=== PATIENT | female | born 1990 | race Caucasian/White ===

== ENCOUNTER 2024-06-20 15:39 | Emergency (ER) | payer BC, SELFPAY ==
--- NOTE | ~2024-06-20 | US_ITS ---
EXAMINATION: US OB transvaginal DATE: 06/20/2024 19:43 [facility] INDICATION: Vaginal bleeding with a positive test COMPARISON: 05/07/2024 TECHNIQUE: Real-time transabdominal obstetric ultrasound. FINDINGS: LMP given as 05/05/2024 1 para 0 Estimated date of delivery by last menstrual period is 02/09/2025 Quantitative beta hCG is less than 1000 The uterus measures 7.7 x 3.3 x 4.3 cm. Endometrial complex measures 5.1 mm No gestational sac is identified at this early stage. The right ovary measures 4.2 x 1.7 x 2.0 cm. Within the right ovary is a well-circumscribed anechoic avascular focus measuring 18 x 16 x 16 mm, po ssibly an early corpus luteal cyst. The left ovary measures 3.0 x 1.5 x 1.8 cm. IMPRESSION: No intrauterine gestation is identified at this early stage. Short-term follow-up is recommended. Reviewed, dictated and finalized at location A. STRIPPER
[2024-06-20 15:48] VITALS: BP 132/72; PULSE 78; RESP 18; TEMP 36.1; O2SAT 100
--- NOTE | 2024-06-20 16:00 | ED_ITS ---
HPI - General Chief complaint: Vaginal Bleeding <Yadi Pedraza PA-C - Last Filed: 06/20/24 16:02> Stated complaint: 6 wks , bleeding <Yadi Pedraza PA-C - Last Filed: 06/20/24 16:02> Time Seen by Provider: 06/20/24 16:00 <Yadi Pedraza PA-C - Last Filed: 06/20/24 16:02> Focused HPI: This is a 33 year old female that presents to the ER for vaginal bleeding. Ongoing over the last 5 days. Reports initially was spotting, the last 2 days has become more heavy. Has had more constant cramping. She is currently about 6 weeks . Her OB is Dr. Shea. GENERAL: Well-appearing, well-nourished, and in no acute distress. HEAD: Normocephalic, atraumatic. CHEST: Clear to auscultation. ?No respiratory distress. HEART: Regular rate and rhythm.? NEURO: ?Alert and oriented x3. Patient screened in triage and initial orders placed.? ?Additional care and disposition to be based upon?diagnostic testing and treatment. <Yadi Pedraza PA-C - Last Filed: 06/20/24 16:02> History of Present Illness HPI Narrative: Agree with HPI. 1st . Has not had imaging. First test was 2 weeks ago. <Nirav Sol MD - Last Filed: 06/20/24 19:31> Related Data Allergies/Adverse reactions: Allergies Allergy/AdvReac Type Severity Reaction Status Date / Time No Known Allergies Allergy Unverified 11/09/17 08:49 <Yadi Pedraza PA-C - Last Filed: 06/20/24 16:02> Review of Systems Review of Systems: All systems reviewed & are unremarkable except as noted in HPI and below <Nirav Sol MD - Last Filed: 06/20/24 19:31> Constitutional: Constitutional: Reports no additional constitutional complaints <Nirav Sol MD - Last Filed: 06/20/24 19:31> Gastrointestinal: Gastrointestinal: Reports no additional gastrointestinal complaints <Nirav Sol MD - Last Filed: 06/20/24 19:31> Genitourinary: Genitourinary: Reports abnormal vaginal bleeding, Denies nocturia, Denies dysuria, Reports pelvic pain ( cramping) and Denies vaginal discharge <Nirav Sol MD - Last Filed: 06/20/24 19:31> PMFSH Past Medical History Medical History: Medical History (Updated 06/20/24 @ 20:19 by Devonte Monterroso MD) Healthy female adult <Yadi Pedraza PA-C - Last Filed: 06/20/24 16:02> Surgical History Surgical History: Surgical History (Updated 06/20/24 @ 18:28 by Nirav Sol MD) No history of previous surgery <Yadi Pedraza PA-C - Last Filed: 06/20/24 16:02> Exam Narrative: GENERAL: Well-appearing, well-nourished, and in no acute distress. HEAD: Normocephalic, atraumatic. ENT: Mucous membranes moist. CHEST: Clear to auscultation. No respiratory distress. HEART: Regular rate and rhythm. Normal peripheral pulses. ABDOMEN: Soft, nontender, nondistended. EXTREMITIES: Normal range of motion. No edema. NEURO: Nlert and oriented x3. PSYCH: Normal mood and affect. <Nirav Sol MD - Last Filed: 06/20/24 19:31> Course Course Emergency Course: Patient went to receive an ultrasound before the ultrasound she felt a guerrero in her panty liner. When she looked there was gelatinous round material she thinks it may have been the . She did flush it down the toilet no one else was able to see it. Care transferred to Dr. Monterroso awaiting ultrasound results. Patient's PCP will need to be contacted. Blood type is A positive so patient does not require RhoGAM. <Nirav Sol MD - Last Filed: 06/20/24 19:31> Vital Signs Vital signs: Vital Signs Temperature 36.1 C L 06/20/24 15:48 Pulse Rate 78 06/20/24 15:48 Respiratory Rate 18 06/20/24 15:48 Blood Pressure 132/72 06/20/24 15:48 Pulse Oximetry 100 06/20/24 15:48 Oxygen Delivery Room Air 06/20/24 15:48 Temperature 36.6 C 06/20/24 19:25 Pulse Rate 69 06/20/24 19:25 Respiratory Rate 20 06/20/24 19:25 Blood Pressure 114/80 06/20/24 19:25 Pulse Oximetry 100 06/20/24 19:25 Oxygen Delivery Room Air 06/20/24 15:48 <Yadi Pedraza PA-C - Last Filed: 06/20/24 16:02> Vital Signs Temperature 36.1 C L 06/20/24 15:48 Pulse Rate 78 06/20/24 15:48 Respiratory Rate 18 06/20/24 15:48 Blood Pressure 132/72 06/20/24 15:48 Pulse Oximetry 100 06/20/24 15:48 Oxygen Delivery Room Air 06/20/24 15:48 Temperature 36.6 C 06/20/24 19:25 Pulse Rate 69 06/20/24 19:25 Respiratory Rate 20 06/20/24 19:25 Blood Pressure 114/80 06/20/24 19:25 Pulse Oximetry 100 06/20/24 19:25 Oxygen Delivery Room Air 06/20/24 15:48 <Nirav Sol MD - Last Filed: 06/20/24 19:31> Vital Signs Temperature 36.1 C L 06/20/24 15:48 Pulse Rate 78 06/20/24 15:48 Respiratory Rate 18 06/20/24 15:48 Blood Pressure 132/72 06/20/24 15:48 Pulse Oximetry 100 06/20/24 15:48 Oxygen Delivery Room Air 06/20/24 15:48 Temperature 36.6 C 06/20/24 19:25 Pulse Rate 69 06/20/24 19:25 Respiratory Rate 20 06/20/24 19:25 Blood Pressure 114/80 06/20/24 19:25 Pulse Oximetry 100 06/20/24 19:25 Oxygen Delivery Room Air 06/20/24 15:48 <Devonte Monterroso MD - Last Filed: 06/20/24 20:19> MDM - OB/Uterine Contractions MDM Narrative Medical decision making narrative: patient was signed out pending results of ultrasound. Ultrasound showed No intrauterine gestation is identified at this early stage. Short-term follow-up is recommended. <Devonte Monterroso MD - Last Filed: 06/20/24 20:19> Lab Data Result diagrams: 06/20/24 16:27 06/20/24 16:27 <Yadi Pedraza PA-C - Last Filed: 06/20/24 16:02> Labs: Lab Results 06/20/24 Range/Units 16:27 WBC 8.6 (4.5-10.0) K/mm3 RBC 4.50 (4.2-5.4) M/mm3 Hgb 13.5 (12.0-15.0) g/dL Hct 39.6 (37.0-47.0) % MCV 88.0 (80-100) fl MCH 30.0 (26-34) pg MCHC 34.1 (32-36) g/dl RDW 11.9 (11.5-14.5) % Plt Count 197 (150-375) k/mm3 MPV 11.0 H (7.4-10.4) fl Immature Gran % (Auto) 0.2 (0-0.5) % Neut % (Auto) 71.5 (45.5-73.1) % Lymph % (Auto) 20.9 (18.3-44.2) % [place] % (Auto) 6.2 (2.6-8.5) % Eos % (Auto) 0.8 (0-4.4) % Baso % (Auto) 0.4 (0.2-1.2) % Lymph # (Auto) 1.79 (0.9-3.2) K/mm3 [place] # (Auto) 0.5 (0.1-0.6) K/mm3 Eos # (Auto) 0.1 (0-0.3) K/mm3 Baso # (Auto) 0.0 (0.0-0.1) K/mm3 Abs Immat Gran (auto) 0.02 (0.00-0.031) K/mm3 Absolute Neuts (auto) 6.1 (1.3-6.7) K/mm3 Absolute Nucleated RBC 0.000 (0.0-0.012) K/mm3 Nucleated RBC % 0.0 (0.0-0.2) % PT 13.9 (11.1-14.7) Seconds INR 1.0 APTT 24.7 (22.3-36.8) Seconds Sodium 136 L (137-145) mmol/L Potassium 4.1 (3.4-5.0) mmol/L Chloride 103 (98-107) mmol/L Carbon Dioxide 26 (22-30) mmol/L Anion Gap 7 (4-12) mmol/L BUN 15 (7-17) mg/dL Creatinine 0.70 (0.7-1.0) mg/dL Estim Creat Clear Calc 120 ml/min Estimated GFR > 60 (59 - ) Glucose 106 (65-110) mg/dL Calcium 9.1 (8.4-10.2) mg/dL Total Bilirubin 0.2 (0.2-1.3) mg/dL AST 28 (14-36) U/L ALT 21 (6-35) U/L Alkaline Phosphatase 56 (38-126) U/L Total Protein 8.0 (6.3-8.2) g/dL Albumin 4.5 (3.5-5.1) g/dL Beta HCG, Quant 987.56 mIU/ML Blood Type A Positive Antibody Screen Negative Screen Not Reportable Baby's Blood Type Not Reportable Baby's MICHEAL Not Reportable Doses of RhIg Required 0 <Yadi Pedraza PA-C - Last Filed: 06/20/24 16:02> Lab Results 06/20/24 Range/Units 16:27 WBC 8.6 (4.5-10.0) K/mm3 RBC 4.50 (4.2-5.4) M/mm3 Hgb 13.5 (12.0-15.0) g/dL Hct 39.6 (37.0-47.0) % MCV 88.0 (80-100) fl MCH 30.0 (26-34) pg MCHC 34.1 (32-36) g/dl RDW 11.9 (11.5-14.5) % Plt Count 197 (150-375) k/mm3 MPV 11.0 H (7.4-10.4) fl Immature Gran % (Auto) 0.2 (0-0.5) % Neut % (Auto) 71.5 (45.5-73.1) % Lymph % (Auto) 20.9 (18.3-44.2) % [place] % (Auto) 6.2 (2.6-8.5) % Eos % (Auto) 0.8 (0-4.4) % Baso % (Auto) 0.4 (0.2-1.2) % Lymph # (Auto) 1.79 (0.9-3.2) K/mm3 [place] # (Auto) 0.5 (0.1-0.6) K/mm3 Eos # (Auto) 0.1 (0-0.3) K/mm3 Baso # (Auto) 0.0 (0.0-0.1) K/mm3 Abs Immat Gran (auto) 0.02 (0.00-0.031) K/mm3 Absolute Neuts (auto) 6.1 (1.3-6.7) K/mm3 Absolute Nucleated RBC 0.000 (0.0-0.012) K/mm3 Nucleated RBC % 0.0 (0.0-0.2) % PT 13.9 (11.1-14.7) Seconds INR 1.0 APTT 24.7 (22.3-36.8) Seconds Sodium 136 L (137-145) mmol/L Potassium 4.1 (3.4-5.0) mmol/L Chloride 103 (98-107) mmol/L Carbon Dioxide 26 (22-30) mmol/L Anion Gap 7 (4-12) mmol/L BUN 15 (7-17) mg/dL Creatinine 0.70 (0.7-1.0) mg/dL Estim Creat Clear Calc 120 ml/min Estimated GFR > 60 (59 - ) Glucose 106 (65-110) mg/dL Calcium 9.1 (8.4-10.2) mg/dL Total Bilirubin 0.2 (0.2-1.3) mg/dL AST 28 (14-36) U/L ALT 21 (6-35) U/L Alkaline Phosphatase 56 (38-126) U/L Total Protein 8.0 (6.3-8.2) g/dL Albumin 4.5 (3.5-5.1) g/dL Beta HCG, Quant 987.56 mIU/ML Blood Type A Positive Antibody Screen Negative Screen Not Reportable Baby's Blood Type Not Reportable Baby's MICHEAL Not Reportable Doses of RhIg Required 0 <Nirav Sol MD - Last Filed: 11/15/24 19:31> Lab Results 06/20/24 Range/Units 16:27 WBC 8.6 (4.5-10.0) K/mm3 RBC 4.50 (4.2-5.4) M/mm3 Hgb 13.5 (12.0-15.0) g/dL Hct 39.6 (37.0-47.0) % MCV 88.0 (80-100) fl MCH 30.0 (26-34) pg MCHC 34.1 (32-36) g/dl RDW 11.9 (11.5-14.5) % Plt Count 197 (150-375) k/mm3 MPV 11.0 H (7.4-10.4) fl Immature Gran % (Auto) 0.2 (0-0.5) % Neut % (Auto) 71.5 (45.5-73.1) % Lymph % (Auto) 20.9 (18.3-44.2) % [place] % (Auto) 6.2 (2.6-8.5) % Eos % (Auto) 0.8 (0-4.4) % Baso % (Auto) 0.4 (0.2-1.2) % Lymph # (Auto) 1.79 (0.9-3.2) K/mm3 [place] # (Auto) 0.5 (0.1-0.6) K/mm3 Eos # (Auto) 0.1 (0-0.3) K/mm3 Baso # (Auto) 0.0 (0.0-0.1) K/mm3 Abs Immat Gran (auto) 0.02 (0.00-0.031) K/mm3 Absolute Neuts (auto) 6.1 (1.3-6.7) K/mm3 Absolute Nucleated RBC 0.000 (0.0-0.012) K/mm3 Nucleated RBC % 0.0 (0.0-0.2) % PT 13.9 (11.1-14.7) Seconds INR 1.0 APTT 24.7 (22.3-36.8) Seconds Sodium 136 L (137-145) mmol/L Potassium 4.1 (3.4-5.0) mmol/L Chloride 103 (98-107) mmol/L Carbon Dioxide 26 (22-30) mmol/L Anion Gap 7 (4-12) mmol/L BUN 15 (7-17) mg/dL Creatinine 0.70 (0.7-1.0) mg/dL Estim Creat Clear Calc 120 ml/min Estimated GFR > 60 (59 - ) Glucose 106 (65-110) mg/dL Calcium 9.1 (8.4-10.2) mg/dL Total Bilirubin 0.2 (0.2-1.3) mg/dL AST 28 (14-36) U/L ALT 21 (6-35) U/L Alkaline Phosphatase 56 (38-126) U/L Total Protein 8.0 (6.3-8.2) g/dL Albumin 4.5 (3.5-5.1) g/dL Beta HCG, Quant 987.56 mIU/ML Blood Type A Positive Antibody Screen Negative Screen Not Reportable Baby's Blood Type Not Reportable Baby's MICHEAL Not Reportable Doses of RhIg Required 0 <Devonte Monterroso MD - Last Filed: 06/20/24 20:19> Discharge Plan Discharge Clinical Impression: Threatened <Yadi Pedraza PA-C - Last Filed: 06/20/24 16:02> Patient Disposition: Home, Self-Care <Yadi Pedraza PA-C - Last Filed: 06/20/24 16:02> Condition: Stable <Yadi Pedraza PA-C - Last Filed: 06/20/24 16:02> Instructions: Antibiotic Form, Threatened Miscarriage (ED) <Yadi Pedraza PA-C - Last Filed: 06/20/24 16:02> Additional Instructions: please follow-up with your OBGYN this week. You will need a repeat blood test and may need further testing as an outpatient. <Yadi Pedraza PA-C - Last Filed: 06/20/24 16:02> Follow-up/Referrals: Nancy Shea MD [Primary Care Provider] - <Yadi Pedraza PA-C - Last Filed: 06/20/24 16:02> Time of Disposition: 20:19 <Yadi Pedraza PA-C - Last Filed: 06/20/24 16:02> 20:19 <Nirav Sol MD - Last Filed: 06/20/24 19:31> 20:19 <Devonte Monterroso MD - Last Filed: 06/20/24 20:19>
[2024-06-20 16:33] LABS: Basophils Percent Auto 0.4 % (0.2-1.2); Eosinophils Absolute Auto 0.1 K/mm3 (0-0.3); Eosinophils Percent Auto 0.8 % (0-4.4); Hematocrit 39.6 % (37.0-47.0); Hemoglobin 13.5 g/dL (12.0-15.0); Immature Granulocyte Absolute 0.02 K/mm3 (0.00-0.031); Immature Granulocyte Percent A 0.2 % (0-0.5); Lymphocytes Absolute Auto 1.79 K/mm3 (0.9-3.2); Lymphocytes Percent Auto 20.9 % (18.3-44.2); Mean Corpuscular HGB Conc 34.1 g/dl (32-36); Monocytes Absolute Auto 0.5 K/mm3 (0.1-0.6); Monocytes Percent Auto 6.2 % (2.6-8.5); Neutrophils Absolute Auto 6.1 K/mm3 (1.3-6.7); Neutrophils Percent Auto 71.5 % (45.5-73.1); Platelet Count Result 197 k/mm3 (150-375); Red Cell Distribution Width 11.9 % (11.5-14.5); White Blood Count 8.6 K/mm3 (4.5-10.0)
[2024-06-20 16:48] LABS: Alanine Aminotransferase 21 U/L (6-35); Albumin Level 4.5 g/dL (3.5-5.1); Alkaline Phosphatase 56 U/L (38-126); Anion Gap 7 mmol/L (4-12); Aspartate Amino Transferase 28 U/L (14-36); Bilirubin,Total 0.2 mg/dL (0.2-1.3); Blood Urea Nitrogen 15 mg/dL (7-17); Calcium 9.1 mg/dL (8.4-10.2); Carbon Dioxide 26 mmol/L (22-30); Chloride 103 mmol/L (98-107); Estimated CRCL calculation 120 ml/min; Estimated Glomerular Filt Rate > 60; Glucose 106 mg/dL (65-110); Potassium 4.1 mmol/L (3.4-5.0); Sodium 136 mmol/L (137-145)
[2024-06-20 17:04] LABS: Beta HCG Quantitative 987.56 mIU/ML
[2024-06-20 17:11] LABS: Partial Thromboplastin Time 24.7 Seconds (22.3-36.8); Prothrombin Time 13.9 Seconds (11.1-14.7)
[2024-06-20 17:21] VITALS: BP 129/76; PULSE 76; RESP 16; TEMP 36.7; O2SAT 99
[2024-06-20 17:22] VITALS: BP 135/74; PULSE 70
[2024-06-20 17:24] VITALS: BP 139/74; PULSE 78
[2024-06-20 17:25] VITALS: BP 126/79; PULSE 83
[2024-06-20 19:25] VITALS: BP 114/80; PULSE 69; RESP 20; TEMP 36.6; O2SAT 100
== END 2024-06-20 20:58 | disposition home or self-care (01) ==
PROVIDERS: Physician Assistant; Emergency Provider Emergency Medicine; PCP Obstetrics & Gynecology Gynecology
DX: O20.0 Threatened abortion (principal); Z3A.01 Less than 8 weeks gestation of pregnancy
CPT/HCPCS: 36415; 76817; 80053; 84702; 85025; 85461; 85610; 85730; 86850; 86900; 86901; 99284

== ENCOUNTER 2025-04-22 12:40 | Outpatient (CLI) | payer BC, SELFPAY ==
--- NOTE | ~2025-04-22 | US_ITS ---
EXAMINATION: US OB <= 14 weeks fetus DATE: 04/22/2025 13:14 INDICATION: Assess viability during first trimester TECHNIQUE: Real-time pelvic ultrasound utilizing both a transvaginal and transabdominal probe was performed. The interpreting radiologist was not present for the study. COMPARISON: None. FINDINGS: The uterus measures 9.1 x 4.8 x 6 point cm. There is an intrauterine gestational sac. A yolk sac and pole are identified. The crown rump length measures 8 mm, which correlates with an estimated gestational age of 6 weeks and 5 days. heart motion is identified measuring 149 beats per minute (bpm) by M-mode Doppler. The right ovary measures 3.6 x 3.1 x 2.8 cm. 1.7 similar anechoic cyst/follicle in the right ovary. The left ovary measures 2.1 x 1.9 x 1.8 cm. There is no free fluid in the pelvis. IMPRESSION: 1. Single living fetus with heart rate of 149 bpm. 2. Gestational age by ultrasound of 6 weeks 5 day(s) +/- 4 day(s) with ultrasound estimated date of delivery (TIMOTHY) of 12/11/2025. Reviewed, dictated and finalized at location A. IMPRESSION: 1. Single living fetus with heart rate of 149 bpm. 2. Gestational age by ultrasound of 6 weeks 5 day(s) +/- 4 day(s) with ultraso und estimated date of delivery (TIMOTHY) of 12/11/2025.
== END 2025-04-22 12:41 | disposition home or self-care (01) ==
LOC: MICIMG 12:42
PROVIDERS: PCP Obstetrics & Gynecology Gynecology; Visit Provider Obstetrics & Gynecology Gynecology
DX: O36.80X0 Pregnancy with inconclusive fetal viability, not applicable or unspecified (principal); Z3A.00 Weeks of gestation of pregnancy not specified
CPT/HCPCS: 76801